=== PATIENT | male | born 1980 | race African-American/Black ===

== ENCOUNTER 2019-03-18 21:36 | Emergency (ER) | payer OTHER ==
[~2019-03-18] VITALS: Ht 193 cm; Wt 136.1 kg
[2019-03-18] MEDS ORDERED: HYDROCHLOROTHIA25 M1 PO (21:42)
[2019-03-18 22:51] LABS: HEMATOCRIT 36.4 % (42.0-52.0); HEMOGLOBIN 11.6 gm/dL (14.0-18.0); MCH 27.1 pg (26.0-34.0); MCHC 31.9 g/dL (28.0-37.0); MCV 84.8 fL (80.0-100.0); PLATELET COUNT 178 thou/uL (150-400); RDW 14.4 % (10.5-14.5); WBC 4.2 thou/uL (4.0-11.0)
[2019-03-18 22:54] LABS: CALCIUM 8.1 mg/dL (8.5-10.1); CREATININE 1.6 mg/dL (0.7-1.3); POTASSIUM 3.8 mmol/L (3.5-5.1)
[2019-03-18 22:57] LABS: URIC ACID* 6.7 mg/dL (2.6-7.2)
[2019-03-18 23:45] LABS: ABSOLUTE NEUTROPHILS 2.4 thou/uL (1.4-8.2); PLATELET ESTIMATE NORMAL
[2019-03-19] MEDS ORDERED: PREDNISONE 20 M20 M1 PO (01:01)
[2019-03-19] MEDS ORDERED: NORCO 10-325 T1 EACH PO (01:01)
[2019-03-19] MEDS ORDERED: SENNA-DOCUSATE1 EAC1 PO (01:01)
[2019-03-19 01:13] VITALS: BP 130/86
== END 2019-03-19 01:14 | disposition home or self-care (01) ==
LOC: ER 21:36
PROVIDERS: Emergency Medicine
DX: M10.9 Gout, unspecified (principal); I10 Essential (primary) hypertension; J45.909 Unspecified asthma, uncomplicated

== ENCOUNTER 2019-03-25 12:32 | Emergency (ER) | payer OTHER ==
[~2019-03-25] VITALS: Ht 294.6 cm; Wt 147.4 kg
[~2019-03-25 12:32] MED LIST: HYDROCHLOROTHIA25 M1 PO; NORCO 10-325 T1 EACH PO; PREDNISONE 20 M20 M1 PO; SENNA-DOCUSATE1 EAC1 PO
[2019-03-25] MEDS ORDERED: LISINOPRIL2.5 MG PO (13:11)
[2019-03-25 14:13] LABS: ABSOLUTE NEUTROPHILS 2.8 thou/uL (1.4-8.2); BASOPHILS 0.5 % (0.0-2.0); EOSINOPHILS 1.4 % (0.0-3.0); HEMATOCRIT 38.7 % (42.0-52.0); HEMOGLOBIN 12.4 gm/dL (14.0-18.0); LYMPHOCYTES 33.8 % (24.0-44.0); MCH 27.1 pg (26.0-34.0); MCV 84.7 fL (80.0-100.0); MONOCYTES 8.6 % (1.0-8.0); PLATELET COUNT 182 thou/uL (150-400); POLYS 55.7 % (36.0-66.0); RBC 4.58 mil/uL (4.50-6.00); RDW 14.8 % (10.5-14.5)
[2019-03-25 14:20] LABS: ANION GAP 9 mmol/L (7-16); BUN 14 mg/dL (7-18); CALCIUM 8.3 mg/dL (8.5-10.1); CHLORIDE 104 mmol/L (98-107); CO2 29 mmol/L (21-32); CREATININE 1.3 mg/dL (0.7-1.3); GLUCOSE 127 mg/dL (74-106); POTASSIUM 3.9 mmol/L (3.5-5.1); SODIUM 142 mmol/L (136-145)
[2019-03-25 14:30] LABS: TROPONIN-I <0.06 ng/mL (<0.06)
[2019-03-25] MEDS ORDERED: PROMETH-CODEIN 65 ML PO (15:12)
[2019-03-25] MEDS ORDERED: ZOFRAN ODT4 MG PO (15:12)
[2019-03-25] MEDS ORDERED: TESSALON PERLE100 M1 PO (15:15)
[2019-03-25 16:00] VITALS: BP 148/82
--- NOTE | 2019-03-26 17:19 | EKG ---
[place] [address] [facility] [employer] [place] [address] ELECTROCARDIOGRAM REPORT Name: AMOL TATE Room #: DEP LIZ [place]#: [id number] Admission: 03/25/19 Attend Phys: Discharge: 03/25/19 Date of : 78 Report #: [id number] THIS REPORT FOR: //name// [facility] ED Test Date: 2019-03-25 Test Time: 12:58:20 Pat Name: AMOL TATE Department: Room: Gender: Shipyard Helper: Johnny GARCIA : 1980 Requested By: Loco Galindo Order Number: [id number] MD: Inocencio Lugo Measurements Intervals [place] Rate: 62 P: 53 ME: 163 QRS: 23 QRSD: 103 T: 16 QT: 409 QTc: 416 Interpretive Statements Sinus rhythm ST elev, probable normal early repol pattern No previous ECG available for comparison Electronically Signed On 03-26-2019 17:18:58 E [employer] by Inocencio Lugo [email or web address] <ELECTRONICALLY SIGNED> By: Inocencio Lugo MD 03/26/19 1718 [id number] MD QING Ring
== END 2019-03-25 16:00 | disposition home or self-care (01) ==
LOC: ER 12:32
PROVIDERS: Emergency Medicine
DX: R55 Syncope and collapse (principal); R05 Cough; R09.89 Other specified symptoms and signs involving the circulatory and respiratory systems; I10 Essential (primary) hypertension; J45.909 Unspecified asthma, uncomplicated

== ENCOUNTER 2021-01-04 10:18 | Emergency (ER) | payer OTHER ==
[~2021-01-04] VITALS: Ht 193 cm; Wt 152.0 kg
[~2021-01-04 10:18] MED LIST changes: +LISINOPRIL2.5 MG PO; +PROMETH-CODEIN 65 ML PO; +TESSALON PERLE100 M1 PO; +ZOFRAN ODT4 MG PO
[2021-01-04 10:29] VITALS: BP 168/105
[2021-01-04] MEDS ORDERED: LISINOPRIL2.5 MG PO (11:31)
[2021-01-04] MEDS ORDERED: HYDROCHLOROTH12.5 M2 PO (11:31)
[2021-01-04] MEDS ORDERED: NORCO5 PO (11:31)
[2021-01-04] MEDS ORDERED: DICLOFENAC SODI50 MG PO (11:31)
== END 2021-01-04 11:35 | disposition home or self-care (01) ==
LOC: ER 10:18
DX: M79.671 Pain in right foot (principal); I10 Essential (primary) hypertension; J45.909 Unspecified asthma, uncomplicated; F12.90 Cannabis use, unspecified, uncomplicated; Z98.890 Other specified postprocedural states; Z79.891 Long term (current) use of opiate analgesic; Z79.899 Other long term (current) drug therapy